=== PATIENT | female | born 1995 | race Caucasian/White ===

== ENCOUNTER 2018-12-01 02:04 | Inpatient (IN) | payer OTHER ==
[~2018-12-01] VITALS: Ht 149.9 cm; Wt 56.3 kg
[2018-12-01] VITALS (19 sets, daily range): BP systolic 95–180; BP diastolic 52–146; PULSE 97–109; RESP 11–19; Ht 149.9 cm; Wt 56.3 kg
[~2018-12-01 02:04] MED LIST: FER325 PO; INSU100I12 SQ; INSU100I33 SC; INSU200I SQ; MAGN400T27 PO; METO10TA92 PO; POTA8TAB2 PO
[2018-12-01] MEDS ORDERED: NS + KCL 40 MEQ 1,000 ML IV SCH (02:13)
[2018-12-01] MEDS ORDERED: D10/0.45% NACL + KCL 40 MEQ 1,000 ML IV SCH (02:13)
[2018-12-01] MEDS ORDERED: DEXTROSE 10%/0.45% NACL 1,000 ML IV SCH (02:13)
[2018-12-01] MEDS ORDERED: SOD CHLORIDE 0.9% 1,000 ML IV SCH ×2 (02:13→05:54)
[2018-12-01] MEDS ORDERED: D10/0.45% NACL + KCL 30 MEQ 1,000 ML IV SCH (02:13)
[2018-12-01] MEDS ORDERED: LACTATED RINGER'S 650 ML IV ONE (02:30)
[2018-12-01] MEDS ORDERED: INSULIN REGULAR, HUMAN 100 UNIT in SOD CHLORIDE 0.9% 100 ML IV SCH ×2 (02:30)
[2018-12-01] MEDS ORDERED: DEXTROSE 50% 50 ML SYRINGE IV PRN ×2 (02:30)
--- NOTE | 2018-12-01 05:14 | ERD ---
ER Documentation Chief Complaint Chief Complaint [id number],high accucheck result,hx IDDM,ALOC HPI This is a 23-year-old insulin-dependent diabetic who is totally noncompliant with her insulin is here for decreased mental status and presumed DKA. The patient was at [facility] last Saturday due to high blood sugar and she was given IV fluids and insulin and she was there for 1 day then went home. The boyfriend states the patient's been having nausea vomiting all week and has not been taking her insulin. He said that he came home from work last night and she was very difficult to arouse. The boyfriend says the patient's been mostly vomiting off and on all week, little intake orally, but no drug use and no trauma. He is generally a very poor historian. EMS was called and blood sugar reading was high. Had a difficult time getting an IV so they put in a left IO in her leg ROS All systems reviewed and are negative except as per history of present illness. Allergies Allergies: Coded Allergies: No Known Allergy (Unverified , 12/01/18) PMhx/Soc History of Surgery: No Anesthesia Reaction: No Hx Neurological Disorder: No Hx Respiratory Disorders: No Hx Cardiac Disorders: No Hx Psychiatric Problems: No Hx Miscellaneous Medical Probl: No Smoking Status: Unknown if ever smoked FmHx Family History: No coronary disease Physical Exam Vitals Vital Signs Date Temp Pulse Resp B/P (MAP) Pulse Ox O2 O2 Flow FiO2 Time Delivery Rate 12/01/18 88 16 96/67 (77) 99 Room Air 05:26 12/01/18 96.7 91 18 82/44 (57) 100 Nasal 03:14 Cannula 12/01/18 100 3.0 03:04 12/01/18 96.7 97 30 118/93 98 High Flow 02:25 (101) 12/01/18 96.7 99 23 118/93 98 02:14 (101) Physical Exam Const: Well-developed, well-nourished Head: Atraumatic, normocephalic Eyes: Normal Conjunctiva, PERRLA, EOMI, normal sclera, no nystagmus ENT: Normal External Ears, Nose and Mouth, dry mucus membranes. Neck: Full range of motion. No meningismus, no lymphadenopathy. Resp: Clear to auscultation bilaterally, no wheezing, rhonchi, rales Cardio: Tachycardia, no murmurs, S1 S2 present] Abd: Soft, non tender x 4, non distended. Normal bowel sounds, no guarding or rebound, no pulsitile abdominal masses or bruits Skin: No petechiae or rashes, no ecchymosis , no maculopapular rash Back: No midline or flank tenderness Ext: No cyanosis, or edema, gross FROM x 4, normal inspection, neurovascularly intact x 4 Neur: Patient is groggy but will respond to pain, limited exam Psych: Cannot assess Result Diagram: 12/01/18 0217 12/01/18 0450 Results 24 hrs Laboratory Tests Test 12/01/18 02:08 12/01/18 02:17 12/01/18 02:30 12/01/18 02:53 Bedside Glucose > 595 mg/dL White Blood 11.4 10^3/ul Count Red Blood Count 4.74 10^6/ul Hemoglobin 13.3 g/dl Hematocrit 46.1 % Mean Corpuscular 97.3 fl Volume Mean Corpuscular 28.1 pg Hemoglobin Mean Corpuscular 28.9 g/dl Hemoglobin Claudia nt Red Cell 16.4 % Distribution Width Platelet Count 211 10^3/UL Mean Platelet 13.8 fl Volume Immature 2.200 % Granulocytes % Neutrophils % 80.4 % Lymphocytes % 13.8 % Monocytes % 3.2 % Eosinophils % 0.0 % Basophils % 0.4 % Nucleated Red 0.3 /100WBC Blood Cells % Immature 0.250 10^3/ul Granulocytes # Neutrophils # 9.2 10^3/ul Lymphocytes # 1.6 10^3/ul Monocytes # 0.4 10^3/ul Eosinophils # 0.0 10^3/ul Basophils # 0.1 10^3/ul Nucleated Red 0.0 10^3/ul Blood Cells # Hemoglobin A1c > 14.0 % Serum HCG, NEGATIVE Qualitative Blood Gas Blood arterial Specimen Source Arterial Blood 12/01/2018 2:25:1 Date Drawn 4 AM Arterial Blood 7.140 pH (Temp corrected) Arterial Blood 18.5 mmhg pCO2 (Temp correct) Arterial Blood 629.4 mmHG pO2 (Temp corrected) Arterial Blood 6.2 mmol/L HCO3 Arterial Blood -20.8 mmol/L Base Excess Arterial Blood 99.5 mmHG Oxygen Saturatio n Miguel Test N/A Arterial Blood LB Gas Puncture Site Arterial 0.3 % Blood Carboxyhem oglobin Arterial Blood 0.5 % Methemoglobin Blood Gas A-a O2 65.1 mmHg Differential Oxyhemoglobin 98.7 % Percent Blood Gas 37.0 C Temperature Blood Gas MASK - NRB Modality FiO2 100.0 % Blood Gas A LILLIE LUCIO Critical Value Read Back Blood Gas UP Notified Whom Blood Gas 12/01/2018 2:36:4 Notified Time 2 AM POC Beta HCG, NEGATIVE Qualitative Test 12/01/18 03:10 12/01/18 03:13 12/01/18 04:13 12/01/18 04:33 Urine Color YELLOW Urine Clarity CLEAR Urine pH 5.0 Urine Specific 1.021 [place] Urine Ketones 1+ mg/dL Urine Nitrite NEGATIVE mg/dL Urine Bilirubin NEGATIVE mg/dL Urine NEGATIVE mg/dL Urobilinogen Urine Leukocyte NEGATIVE Lorraine/ul Esterase Urine 1 /HPF Microscopic RBC Urine 1 /HPF Microscopic WBC Urine Hemoglobin NEGATIVE mg/dL Urine Glucose 3+ mg/dL Urine Total 1+ mg/dl Protein Bedside Glucose > 595 mg/dL > 595 mg/dL Blood Gas Blood venous Specimen Source Arterial Blood 12/01/2018 4:47:3 Date Drawn 9 AM Arterial Blood VENOUS LINE Gas Puncture Site Miguel Test N/A Venous Blood pH 7.086 Venous Blood 22.2 mmHG pCO2 (Temp Corrected) Venous Blood pO2 65.4 mmHG (Temp Corrected) Venous Blood 6.5 mmol/L HCO3 Venous Blood 87.4 mmHG Oxygen Saturation Venous Blood -21.7 mmol/L Base Excess Venous Blood 12.0 g/dl Total Hemoglobin Venous Blood 86.6 % Oxyhemoglobin Venous Blood 0.6 % Methemoglobin Carboxyhemoglobi 0.3 % n Blood Gas 37.0 C Temperature Blood Gas NASAL CANNULA Modality FiO2 30.0 % Blood Gas STANTON GUPTA Critical Value Read Back Blood Gas LW Notified Whom Blood Gas 12/01/2018 4:58:2 Notified Time 9 AM Test 12/01/18 04:50 Sodium Level 152 mmol/L Potassium Level Pending Chloride Level 118 mmol/L Carbon Dioxide 6 mmol/L Level Anion Gap 28 Blood Urea 161 mg/dl Nitrogen Creatinine 5.22 mg/dl Est Glomerular 10 mL/min Filtrat Rate mL/min Glucose Level 1052 mg/dl Calcium Level 7.7 mg/dl Phosphorus Level 9.9 mg/dl Magnesium Level 3.7 mg/dl Salicylates < 1.0 mg/dl Level Acetaminophen < 10.0 ug/ml Level Ethyl Alcohol Pending Level Current Medications Medications Dose Sig/Jennifer Start Time Status Last (Trade) Ordered Route PRN Stop Time Admin Dose Reason Admin Potassium 1,000 ml @ Q0M IV 12/01/18 Chloride/Sodi 0 mls/hr 02:13 um Chloride Potassium 1,000 ml @ Q0M IV 12/01/18 Chloride/Dext 0 mls/hr 02:13 hilario/ Sod Cl Potassium 1,000 ml @ Q0M IV 12/01/18 Chloride/Sodi 0 mls/hr 02:13 um Chloride Potassium 1,000 ml @ Q0M IV 12/01/18 Chloride/Dext 0 mls/hr 02:13 hilario/ Sod Cl Sodium 1,000 ml @ Q0M IV 12/01/18 12/01/18 Chloride 0 mls/hr 02:13 02:29 1,000 ml @ Q0M IV 12/01/18 Dextrose/Sodi 0 mls/hr 02:13 um Chloride Insulin 101 ml @ ER DKA 12/01/18 12/01/18 Human 6.57 mls/hr PROTOCOL IV 02:30 03:27 Regular 100 unit/ Sodium Chloride Lactated 650 ml @ ONCE ONCE 12/01/18 DC 12/01/18 Ringer's 650 mls/hr IV 02:30 12/01/18 02:29 03:29 HYPOGLYCEM 12/01/18 Miscellaneous HYPOGLYCEMIA PROTOCOL PRN 02:30 TREATMENT XX Information .HYPOGLYCEMIA (* PROTOCOL Miscellaneous Pharmacy Order) Dextrose 50 ml Q15M PRN 12/01/18 (D50w IV 02:30 Syringe) .DECREASED GLUCOSE Dextrose 25 ml Q15M PRN 12/01/18 (D50w IV 02:30 Syringe) .DECREASED GLUCOSE Sodium 50 ml ONCE ONCE 12/01/18 DC Bicarbonate IV 05:30 12/01/18 (Na Bicarb 05:31 8.4% Syg) Sodium 50 ml ONCE ONCE 12/01/18 DC Bicarbonate IV 05:30 12/01/18 (Na Bicarb 05:31 8.4% Syg) Procedures/[place] [id number] Radiology Main Line: [phone] DIAGNOSTIC IMAGING REPORT Patient: AKUA CHOUDHARY : 1995 Age: 23 Sex: F MR #: [id number] DOS: 12/01/18 0216 Ordering MD: ROCKY MOREIRA DO Location: E/R Room/Bed: PROCEDURE: Single view chest. CLINICAL INDICATION: Chest pain TECHNIQUE: Single view of the chest was obtained COMPARISON: None FINDINGS: Lung volumes are diminished. There is no airspace consolidation or focal infiltrate. No pleural effusion or pneumothorax. Cardiac silhouette and mediastinal contours are unremarkable. Pulmonary vasculature appears normal. Regional bones are grossly unremarkable. IMPRESSION: Mildly diminished lung volumes, otherwise no acute findings. RPTAT: [facility] Physician Sebastian Date Time Electronically viewed and signed by Physician Sebastian on 12/01/2018 03:05 xB/ CC: ROCKY MOREIRA DO [id number] There is a major delay in getting the BMP done. The BMP was ordered is in lab so they never got it did not order it again, and still delayed. Just got resulted at approximately 5:45 AM. Patient is acidotic with a CO2 of 6 with an anion gap and a blood sugar of over thousand. She was already being treated with the DKA protocol on arrival. We will still get a CT head for completeness. The patient is clinically improv ed and is more arousable. She is complaining of pain where her IO was in her left tibia We will admit to the ICU with Dr. Ny The patient's pH on ABG was 7.1, second 1 on a VBG was 7.08, will give 2 A of bicarb IV. Critical Care Time: 45 minutes Treatments/Evaluations: Close monitoring and treatment of unstable vital signs, cardiorespiratory, and neurologic status, while maintaining tight balance of fluid, respiratory, and cardiac interventions. This time includes discussing the case with the patient and the patient's family. This time does not include all procedures stated elsewhere in this record. This time also includes reviewing old records, labs and radiological studies. This time includes examining and re- examining the patient. Additionally, this time also includes arranging care with admitting and consulting physicians. Departure Diagnosis: Primary Impression: DKA (diabetic ketoacidoses) Diabetes mellitus type: type 1 Diabetes mellitus complication detail: without coma Qualified Codes: E10.10 - Type 1 diabetes mellitus with ketoacidosis without coma Condition: Serious ROCKY MOREIRA DO Dec 01, 2018 05:14
[2018-12-01] MEDS ORDERED: NA BICARBONATE 8.4% 50 ML SYG IV ONE ×2 (05:30)
[2018-12-01] MEDS ORDERED: ACETAMINOPHEN 325 MG TAB PO PRN ×2 (06:00→08:00)
[2018-12-01] MEDS ORDERED: ONDANSETRON 4 MG INJ IV PRN (06:00)
[2018-12-01] MEDS: NS + KCL 30 MEQ 1,000 ML IV SCH ×3 (07:23→11:58)
[2018-12-01] MEDS ORDERED: HYDROmorphONE 0.5 MG/0.5 ML SYG IV PRN (08:00)
--- NOTE | 2018-12-01 13:51 | HP ---
DATE OF ADMISSION: 12/01/2018 REASON FOR VISIT: High blood sugars. HISTORY OF PRESENT ILLNESS: This 23-year-old female with type 1 diabetes mellitus and a his tory of noncompliance with insulin therapy was brought in by paramedics for altered mental status. T he patient was found to be in recurrent diabetic ketoacidosis. She was hospitalized at [facility] about 6 days prior to admission and discharged 24 hours later. According to her boyfriend, th e patient has been having nausea and vomiting throughout the week and refused to take her insulin. I nitial evaluation revealed white blood cell count of 11.4, hemoglobin of 13.3 and platelet count of 4 11,000. Sodium was elevated at 161, potassium 5.1, chloride 132, bicarbonate 14, anion gap elevated at 15 and serum glucose of 638. Phosphorus was elevated at 5.1, magnesium was 2.5. PAST MEDICAL HISTORY: 1. Type 1 diabetes mellitus. 2. History of recent DKA, requiring hospitalization less than one week prior to admission. SOCIAL HISTORY: The patient lives with her boyfriend. Apparently, there is no history of tobacco or alcohol use. PHYSICAL EXAMINATION: GENERAL: Well-developed, well-nourished young female who is quite lethargic and poorly responsive. VITAL SIGNS: Blood pressure 103/53, pulse 107, respiratory rate 16, temperature 95.9. HEENT: Extraocular muscles intact. Pupils are equal and reactive to light bilaterally. Sclerae are anicteric. Oropharynx is clear and moist. NECK: Supple, no JVD, no carotid bruits. LUNGS: Clear to auscultation bilaterally. CARDIAC: Tachycardia, no murmurs or gallops. ABDOMEN: Soft, nontender, nondistended, normoactive bowel sounds. EXTREMITIES: No clubbing, cyanosis, or edema. ASSESSMENT: 1. A 23-year-old female with recurrent diabetes ketoacidosis. 2. Noncompliance with insulin therapy. 3. Hypernatremia. 4. Acute on chronic kidney disease. PLAN: 1. Admit to ICU. Continue insulin drip. Continue IV fluid hydration. 2. Monitor renal function, blood sugars and CBC. 3. family living educator consultation. Dictated By: KATHRINE DWYER/NEIDA Conf#: [id number] DID#: [id number] CC: ORI GONSALVES MD;*[facility]*
[2018-12-01] MEDS ORDERED: GLUCOSE GEL 15 GRAM TUBE PO PRN ×2 (16:00)
[2018-12-01] MEDS ORDERED: POTASSIUM CHLORIDE 30 MEQ in SOD CHLORIDE 0.45% 1,000 ML IV SCH (16:00)
[2018-12-01] MEDS ORDERED: INSULIN GLARGINE [LANTus] (100 UNITS/ML) SYG SC ONE (16:00)
[2018-12-01] MEDS: INSULIN ASPART [NOVOLOG] 3 ML PEN SC SCH ×2 (17:34→21:48)
[2018-12-01] MEDS ORDERED: INSULIN ASPART [NOVOLOG] 3 ML PEN SC SCH (17:35)
[2018-12-02] VITALS (24 sets, daily range): BP systolic 103–135; BP diastolic 64–105; PULSE 85–110; RESP 11–25
[2018-12-02] MEDS: Insulin NOVOLOG SS MODERATE Algorithm(NPO/TPN/ENTERAL FEEDS) SC SCH ×2 (00:57→05:17)
[2018-12-02] MEDS ORDERED: INSULIN ASPART [NOVOLOG] 3 ML PEN SC SCH ×2 (01:35→06:00)
[2018-12-02] MEDS ORDERED: ACCU-CHEK XX SCH (02:00)
[2018-12-02] MEDS ORDERED: INSULIN GLARGINE [LANTus] (100 UNITS/ML) SYG SC SCH ×2 (08:00→09:00)
[2018-12-02] MEDS: DEXTROSE 5% 1,000 ML IV SCH ×3 (08:24→21:29)
[2018-12-02] MEDS: INSULIN ASPART [NOVOLOG] 3 ML PEN SC SCH ×4 (09:11→12:31)
[2018-12-02] MEDS: ERYTHROMYCIN BASE (DR) 250 MG CAP PO SCH ×4 (10:00→21:32)
--- NOTE | 2018-12-02 11:47 | PN ---
Date/Time of Note Date/Time of Note DATE: 12/02/18 TIME: 11:44 Subjective Patient is more than responsive. No complaint of abdominal pain, nausea, or vomiting. However she vomited earlier when trying to eat Objective Vitals Vital Signs Date Temp Pulse Resp B/P (MAP) Pulse Ox O2 O2 Flow FiO2 Time Delivery Rate 12/02/18 102 20 115/69 100 Room Air 10:00 (84) 12/02/18 97.8 08:00 12/01/18 3.0 03:04 Intake and Output 12/01/18 12/01/18 12/02/18 1515:00 23:00 07:00 IntakeIntake Total 4394.70 ml 1579.80 ml 0 ml OutputOutput Total 2620 ml 420 ml 520 ml BalanceBalance 1774.70 ml 1159.80 ml -520 ml Clear to auscultation bilaterally Regular rate and rhythm Soft nontender nondistended normoactive bowel sounds No edema Nonfocal Results Result Diagram: 12/02/18 0433 12/02/18 0433 Medications Medications Current Medications Acetaminophen (Tylenol Tab) 650 mg Q4H PRN PO pain/feer; Start 12/01/18 at 08:00 Ondansetron HCl (Zofran Inj) 4 mg Q4H PRN IV nausea; Start 12/01/18 at 08:00 Hydromorphone HCl (Dilaudid) 0.5 mg Q2H PRN IV pain; Start 12/01/18 at 08:00 Miscellaneous Information 1 ea NOTE XX ; Start 12/01/18 at 16:00 Glucose (Glutose) 15 gm Q15M PRN PO DECREASED GLUCOSE; Start 12/01/18 at 16:00 Glucose (Glutose) 22.5 gm Q15M PRN PO DECREASED GLUCOSE; Start 12/01/18 at 16:00 Insulin Aspart (Novolog Insulin Pen) 8 unit Q8H SC Last administered on 12/02/18at 09:11; Admin Dose 8 UNIT; Start 12/02/18 at 09:00 Insulin Glargine (Lantus) 35 units DAILY@0800 SC Last administered on 12/02/18at 09:11; Admin Dose 35 UNITS; Start 12/02/18 at 09:00 Dextrose 1,000 ml @ 150 mls/hr Q6H40M IV Last administered on 12/02/18at 08:24; Admin Dose 100 MLS/HR; Start 12/02/18 at 08:30 Insulin Aspart (Novolog Insulin Pen) NOVOLOG *MODERATE* ALGORITHM Q4 SC Last administered on 12/02/18at 09:11; Admin Dose 8 UNIT; Start 12/02/18 at 09:00 Erythromycin (Erythromycin) 250 mg Q8 PO ; Start 12/02/18 at 10:00 VTE Prophylaxis Risk score (from Ns)>0 risk: 2 SCD applied (from Ns): Yes Lines/Catheters IV Catheter Type: Saline Lock Garcia in Place: No Assessment/Plan Assessment/Plan 23-year-old female with recurrent DKA, resolved Severe dehydration Acute kidney injury, improving Hypernatremia Nausea and vomiting most likely due to gastroparesis Noncompliance with insulin therapy Thrombocytopenia Increase Lantus insulin to 35 units daily Continue NovoLog insulin 8 units 3 times daily Start erythromycin 250 mg p.o. 3 times daily Full liquid diet Case was discussed in length with the nurse and natural resources extension educator Consider resuming insulin drip if blood sugar does not improve. Otherwise transfer to telemetry KATHRINE RAGLAND MD Dec 02, 2018 11:47
[2018-12-02] MEDS: ONDANSETRON 4 MG INJ IV PRN (12:50)
[2018-12-02] MEDS ORDERED: DEXTROSE 50% 50 ML SYRINGE IV PRN ×2 (13:00)
[2018-12-02] MEDS: ACCU-CHEK XX SCH ×11 (13:16→23:27)
[2018-12-02] MEDS: INSULIN HUMAN REGULAR 100 UNIT in SOD CHLORIDE 0.9% 99 ML IV SCH (15:00)
[2018-12-02] MEDS: METOCLOPRAMIDE 10 MG INJ IV SCH (18:08)
[2018-12-03] VITALS (24 sets, daily range): BP systolic 109–143; BP diastolic 72–102; PULSE 93–111; RESP 15–26
[2018-12-03] MEDS: METOCLOPRAMIDE 10 MG INJ IV SCH ×5 (00:37→23:36)
[2018-12-03] MEDS: ACCU-CHEK XX SCH ×15 (00:41→14:29)
[2018-12-03] MEDS: DEXTROSE 5% 1,000 ML IV SCH ×3 (03:56→18:31)
[2018-12-03] MEDS: INSULIN HUMAN REGULAR 100 UNIT in SOD CHLORIDE 0.9% 99 ML IV SCH (04:00)
[2018-12-03] MEDS: ERYTHROMYCIN BASE (DR) 250 MG CAP PO SCH ×3 (05:01→21:26)
--- NOTE | 2018-12-03 10:54 | PN ---
Date/Time of Note Date/Time of Note DATE: 12/03/18 TIME: 10:52 Subjective Feels much better. No abdominal pain, nausea, vomiting. Tolerating oral intake Objective Vitals Vital Signs Date Temp Pulse Resp B/P (MAP) Pulse Ox O2 O2 Flow FiO2 Time Delivery Rate 12/03/18 98.3 94 15 129/93 100 Room Air 08:00 (105) 12/01/18 3.0 03:04 Intake and Output 12/02/18 12/02/18 12/03/18 1515:00 23:00 07:00 IntakeIntake Total 960 ml 1241 ml 1377.5 ml OutputOutput Total 755 ml 605 ml 510 ml BalanceBalance 205 ml 636 ml 867.5 ml Clear to auscultation bilaterally Regular rate and rhythm Soft nontender nondistended normoactive bowel sounds No edema Nonfocal Results Result Diagram: 12/03/18 0426 12/03/18 0426 Medications Medications Current Medications Acetaminophen (Tylenol Tab) 650 mg Q4H PRN PO pain/feer; Start 12/01/18 at 08:00 Ondansetron HCl (Zofran Inj) 4 mg Q4H PRN IV nausea Last administered on 12/02/18at 12:50; Admin Dose 4 MG; Start 12/01/18 at 08:00 Hydromorphone HCl (Dilaudid) 0.5 mg Q2H PRN IV pain; Start 12/01/18 at 08:00 Miscellaneous Information 1 ea NOTE XX ; Start 12/01/18 at 16:00 Glucose (Glutose) 15 gm Q15M PRN PO DECREASED GLUCOSE; Start 12/01/18 at 16:00 Glucose (Glutose) 22.5 gm Q15M PRN PO DECREASED GLUCOSE; Start 12/01/18 at 16:00 Dextrose 1,000 ml @ 150 mls/hr Q6H40M IV Last administered on 12/03/18at 03:56; Admin Dose 150 MLS/HR; Start 12/02/18 at 08:30 Erythromycin (Erythromycin) 250 mg Q8 PO Last administered on 12/03/18at 05:01; Admin Dose 250 MG; Start 12/02/18 at 10:00 Metoclopramide HCl (Reglan) 10 mg Q6 IV Last administered on 12/03/18at 05:01; Admin Dose 10 MG; Start 12/02/18 at 18:00 Diagnostic Test (Pha) (Accu-Chek) 1 ea Q1H XX Last administered on 12/03/18at 09:29; Admin Dose 1 EA; Start 12/02/18 at 13:00 Miscellaneous Information (* Miscellaneous Pharmacy Order) Treatment of Hypoglycemia: 1.BG 51... Per protocol XX ; Start 12/02/18 at 13:00 Dextrose (D50w Syringe) 25 ml Q15M PRN IV .DECREASED GLUCOSE; Start 12/02/18 at 13:00 Dextrose (D50w Syringe) 50 ml Q15M PRN IV .DECREASED GLUCOSE; Start 12/02/18 at 13:00 Insulin Glargine (Lantus) 36 units DAILY@0800 SC ; Start 12/04/18 at 10:30 Insulin Aspart (Novolog Insulin Pen) 8 unit AC MEALS SC ; Start 12/03/18 at 11:00 Insulin Aspart (Novolog Insulin Pen) NOVOLOG *MODERATE* ALGORITHM WITH MEALS BEDTIME SC ; Start 12/03/18 at 11:30 VTE Prophylaxis Risk score (from Nsg)>0 risk: 2 SCD applied (from Nsg): Yes Lines/Catheters IV Catheter Type: Saline Lock Garcia in Place: No Assessment/Plan Assessment/Plan 23-year-old female with recurrent DKA, resolved Noncompliance with insulin therapy Diabetic gastroparesis Severe dehydration Acute kidney injury, improving Thrombocytopenia Discontinue insulin drip Resume Lantus and lispro insulin Transfer to [facility] Physical therapy multimedia services coordinator follow-up Discharge planning KATHRINE RAGLAND MD Dec 03, 2018 10:54
[2018-12-03] MEDS: INSULIN ASPART [NOVOLOG] 3 ML PEN SC SCH ×5 (11:00→21:00)
[2018-12-03] MEDS: ONDANSETRON 4 MG INJ IV PRN ×2 (11:21→18:31)
[2018-12-03] MEDS ORDERED: INSULIN GLARGINE [LANTus] (100 UNITS/ML) SYG SC ONE (12:00)
[2018-12-04] VITALS (9 sets, daily range): BP systolic 110–133; BP diastolic 75–99; PULSE 102–114; RESP 14–23
[2018-12-04] MEDS: DEXTROSE 5% 1,000 ML IV SCH ×4 (01:18→14:09)
[2018-12-04] MEDS: METOCLOPRAMIDE 10 MG INJ IV SCH ×2 (04:59→12:41)
[2018-12-04] MEDS: ERYTHROMYCIN BASE (DR) 250 MG CAP PO SCH ×2 (04:59→14:00)
[2018-12-04] MEDS ORDERED: INSULIN GLARGINE [LANTus] (100 UNITS/ML) SYG SC SCH (08:00)
[2018-12-04] MEDS: INSULIN ASPART [NOVOLOG] 3 ML PEN SC SCH ×4 (09:25→12:41)
--- NOTE | 2018-12-04 09:57 | PDOCDIS ---
Discharge Instructions CONDITION [id number] Patient Condition: [id number] Good HOME CARE INSTRUCTIONS: [id number] Special Diet: Vquki1k diabetic ACTIVITY: [id number] Activity Restrictions: [id number] No Restrictions FOLLOW UP/APPOINTMENTS Follow-up Plan pcp 1 week Endocrinology 1 week KATHRINE RAGLAND MD Dec 04, 2018 09:57
--- NOTE | 2018-12-04 19:54 | DS ---
DATE OF ADMISSION: 12/01/2018 DATE OF DISCHARGE: 12/04/2018 DISCHARGE DIAGNOSES: 1. A 23-year-old female with recurrent diabetic ketoacidosis, resolved. 2. Nausea and vomiting, most likely due to gastroparesis. 3. Severe dehydration, resolved. 4. Acute kidney injury, improved. 5. Thrombocytopenia. 6. Noncompliance with insulin therapy. HOSPITAL COURSE: A 23-year-old female with type 1 diabetes mellitus, presented to emergency room wit h altered mental status. The patient had just been discharged from [facility] following tarik betic ketoacidosis. Initial evaluation revealed recurrent diabetic ketoacidosis. Blood sugar was as high as 1052 with bi carbonate of 6. BUN and creatinine were 161 and 5.22. The patient received aggressive IV fluid hydr ation. She remained in the ICU for several days on insulin drip. DKA resolved. Acute kidney injury also improved. Her nausea and vomiting were attributed mainly to DKA, but there was some evidence o f gastroparesis. The patient was started on Reglan. I had a long conversation with the patient and her boyfriend regarding compliance with diabetic diet and insulin therapy. The patient is in a stable condition for discharge. She will follow up with [facility] and endocrinology as outpatient. DISCHARGE MEDICATIONS: 1. Basaglar insulin 35 units subcutaneously daily. 2. Lispro insulin 9 units subcutaneously before each meal. 3. Reglan 10 mg before each meal as needed. Dictated By: KATHRINE DWYER/NTS Conf#: [id number] DID#: [id number] CC: ORI GONSALVES MD;*[facility]*
== END 2018-12-04 15:15 | disposition home or self-care (01) | DRG 638 ==
LOC: E/R 02:04 → ICU 05:55 → 2NE 12-04 05:40
PROVIDERS: ADMIT Legal Medicine; ATTEND Legal Medicine
PROC: 4A133R1 Monitoring of Arterial Saturation, Peripheral, Percutaneous Approach (ICD-10-PCS; principal; 2018-12-01)
DX: E10.10 Type 1 diabetes mellitus with ketoacidosis without coma (principal); E87.0 Hyperosmolality and hypernatremia; N17.9 Acute kidney failure, unspecified; E86.0 Dehydration; E10.43 Type 1 diabetes mellitus with diabetic autonomic (poly)neuropathy; K31.84 Gastroparesis; D69.6 Thrombocytopenia, unspecified; E10.22 Type 1 diabetes mellitus with diabetic chronic kidney disease; N18.9 Chronic kidney disease, unspecified; Z79.4 Long term (current) use of insulin; Z91.14 Patient's other noncompliance with medication regimen
CPT/HCPCS: 36415; 36600; 70450; 71045; 80048; 80307; 81001; 81025; 82010; 82803; 82962; 83036; 83735; 84100; 84295; 84703; 85025; 86703; 86803; 87081; 87340; 93005; 96361; 96374; 97116; 97163; 97530; J1815; J2405; J2765; J3480; J7030; J7070; J7120

== ENCOUNTER 2018-12-07 16:41 | Observation (INO) | payer OTHER ==
[~2018-12-07] VITALS: Ht 149.9 cm; Wt 55.0 kg
[2018-12-07] MEDS ORDERED: ONDANSETRON INJ 8 MG in DEXTROSE 5% 50 ML IV STA (16:53)
[2018-12-07] MEDS ORDERED: FAMOTIDINE 20 MG INJ IV STA (16:53)
[2018-12-07] MEDS ORDERED: SOD CHLORIDE 0.9% 1,000 ML IV STA (16:53)
[2018-12-07] MEDS ORDERED: DEXTROSE 50% 50 ML SYRINGE IV STA (16:53)
[2018-12-07] MEDS ORDERED: ONDANSETRON 4 MG INJ ONE (17:04)
[2018-12-07] MEDS ORDERED: ONDANSETRON 4 MG INJ IV STA (17:06)
--- NOTE | 2018-12-07 17:24 | ERD ---
ER Documentation Chief Complaint Chief Complaint PT BIB family for being altered, possible hypoglycemic episode HPI This is a 24-year-old female with a history of type 1 diabetes mellitus that presented to the emergency department with changes in her mental status. Her [id number] indicated that this morning the patient awoke and had taken her insulin as instructed. Afterwards she ate breakfast. She was then complaining of nausea and had 3 episodes of nonbloody nonbilious emesis. The patient appeared to be confused lightheaded and became diaphoretic. Her wtluwk-ew-ail immediately drove her to the hospital for further evaluation. She stated that the patient began to slur her words. She appeared very drowsy. She denies any illicit drug use. Her tytpah-ek-rrn stated there was no blunt or penetrating head chest or abdominal trauma. She has not complained of any polyuria polydipsia. The patient had been admitted to the hospital and subsequently discharged 2 days prior to arrival. At that time she was in diabetic ketoacidosis with a BUN of 161 and a creatinine of 5.22 upon her admission at the time of discharge her BUN had improved to 73 and creatinine was 1.84. She denies any abdominal pain. ROS All systems reviewed and are negative except as per history of present illness. Medications Home Meds Reported Medications Insulin Lispro (Humalog Kwikpen) 200 Unit/1 Ml Insuln.pen, 20 UNIT SQ AC A, EA ADMELOG 12/07/18 Insulin Glargine,Hum.rec.anlog (Basaglar Kwikpen U-100) 100 Unit/1 Ml Insuln.pen, 30 UNIT SC QHS, EA 12/07/18 Discontinued Scripts Metoclopramide* (Reglan*) 10 Mg Tablet, 10 MG PO AC MEALS AND BEDTIME for nausea for 30 Days, TAB Prov:KATHRINE RAGLAND MD 12/04/18 Insulin Lispro (Humalog Kwikpen U-100) 100 Unit/1 Ml Insuln.pen, 9 UNIT SQ AC A for 30 Days, EA 3 Refills Prov:KATHRINE RAGLAND MD 12/04/18 Insulin Glargine,Hum.rec.anlog (Basaglar Kwikpen U-100) 100 Unit/1 Ml Insuln.pen, 35 UNIT SC DAILY for 30 Days, EA 3 Refills Prov:KATHRINE RAGLAND MD 12/04/18 Allergies Allergies: Coded Allergies: No Known Allergy (Unverified , 12/07/18) PMhx/Soc History of Surgery: No Anesthesia Reaction: No Hx Neurological Disorder: No Hx Respiratory Disorders: No Hx Cardiac Disorders: No Hx Psychiatric Problems: Yes (anxiety) Hx Miscellaneous Medical Probl: Yes (See note) Hx Alcohol Use: Yes (social) Hx Substance Use: No Hx Tobacco Use: No Physical Exam Vitals Vital Signs Date Temp Pulse Resp B/P (MAP) Pulse Ox O2 O2 Flow FiO2 Time Delivery Rate 12/07/18 97 16 121/85 98 Room Air 21:15 (97) 12/07/18 97.9 96 18 97/64 (75) 100 16:58 Physical Exam Constitutional:Well-developed. Well-nourished. HEENT:Normocephalic. Atraumatic.Pupils were 3 mm equal round reactive to light. Very dry mucous membranes.No tonsillar exudates. Neck: No nuchal rigidity. No lymphadenopathy. No posterior cervical spine tenderness or step-offs. Respiratory: Not using accessory muscles of respiration.Lungs were clear to auscultation bilaterally. No rhonchi. No rales. No wheezing. Cardiovascular: Regular rate regular rhythm.No murmurs. No rubs were appreciated.S1, S2 normal. Distal pulses are palpable 2+ bilaterally. GI: Abdomen was soft. Nontender. Non Distended. No pulsatile abdominal masses or bruits. No rebound. No guarding. Bowel sounds were present and normal. Muscle skeletal: Full range of motion of both the upper and lower extremities bilaterally.Normal muscle tone.No assymetrical calf tenderness or swelling. Skin: No petechia, no purpura. No lesions on the palms or the soles of the feet. No maculopapular rash. NEURO: Patient was lethargic and responsive to sternal rub. Patient withdrew to pain. Speech was slurred. Result Diagram: 12/07/18 1647 12/07/18 1647 Results 24 hrs Laboratory Tests Test 12/07/18 16:47 12/07/18 17:01 12/07/18 18:07 12/07/18 19:22 White Blood Count 14.3 10^3/ul Red Blood Count 3.93 10^6/ul Hemoglobin 10.9 g/dl Hematocrit 34.5 % Mean Corpuscular 87.8 fl Volume Mean Corpuscular 27.7 pg Hemoglobin Mean Corpuscular 31.6 g/dl Hemoglobin Concent Red Cell 13.4 % Distribution Width Platelet Count 241 10^3/UL Mean Platelet 12.0 fl Volume Immature 6.000 % Granulocytes % Neutrophils % % Segmented 55 % Neutrophils % (Manual) Band Neutrophils % 5 % (Manual) Lymphocytes % % Lymphocytes % 31 % (Manual) Reactive 1 % Lymphocytes % (Manual) Monocytes % % Monocytes % 5 % (Manual) Eosinophils % % Basophils % % Metamyelocytes % 1 % (manual) Myelocytes % 2 % (Manual) Nucleated Red Blood 0.0 /100WBC Cells % Immature 0.860 10^3/ul Granulocytes # Neutrophils # 10^3/ul Neutrophils # 8.0 10^3/ul (Manual) Band Neutrophils # 0.7 10^3/ul Lymphocytes 4.4 10^3/ul (Manual) Lymphocytes # 10^3/ul Reactive 0.1 10^3/ul Lymphocytes # Monocytes # 10^3/ul Monocytes # 0.7 10^3/ul (Manual) Eosinophils # 10^3/ul Basophils # 10^3/ul Metamyelocytes # 0.1 10^3/ul Myelocytes # 0.2 10^3/ul Nucleated Red Blood 10^3/ul Cells # Platelet Estimate NORMAL Giant Platelets 2 % Prothrombin Time 12.6 Sec Prothrombin Time 1.0 Ratio INR International 0.93 Normalized Ratio Activated 30.1 Sec Partial Thromboplas t Time Sodium Level 140 mmol/L Potassium Level 2.7 mmol/L Chloride Level 99 mmol/L Carbon Dioxide 37 mmol/L Level Anion Gap 4 Blood Urea Nitrogen 15 mg/dl Creatinine 0.80 mg/dl Est Glomerular > 60 mL/min Filtrat Rate mL/min Glucose Level 22 mg/dl Calcium Level 8.9 mg/dl Total Bilirubin 0.2 mg/dl Direct Bilirubin 0.00 mg/dl Indirect Bilirubin 0.2 mg/dl Aspartate Amino 56 IU/L Transf (AST/SGOT) Alanine 68 IU/L Aminotransferase (A LT/SGPT) Alkaline 127 IU/L Phosphatase Creatine Kinase 287 IU/L Creatine Kinase 0.3 Index Creatinine Kinase 0.96 ng/ml MB (Mass) Troponin I < 0.012 ng/ml Total Protein 6.7 g/dl Albumin 3.1 g/dl Globulin 3.60 g/dl Albumin/Globulin 0.86 Ratio Amylase Level 142 U/L Lipase 299 U/L Serum HCG, NEGATIVE Qualitative Bedside Glucose 176 mg/dL 127 mg/dL 132 mg/dL Current Medications Medications Dose Sig/Jennifer Start Time Status Last (Trade) Ordered Route PRN Stop Time Admin Dose Reason Admin Dextrose 50 ml ONCE STAT 12/07/18 DC 12/07/18 (D50w IV 16:53 16:45 Syringe) 12/07/18 16:56 Sodium 1,000 ml @ Q1H STAT 12/07/18 DC 12/07/18 Chloride 1,000 mls/hr IV 16:53 17:09 12/07/18 17:52 Ondansetron 54 ml @ ONCE STAT 12/07/18 Cancel HCl 8 200 mls/hr IV 16:53 mg/Dextrose 12/07/18 17:09 Famotidine 20 mg ONCE STAT 12/07/18 DC 12/07/18 (Pepcid Iv) IV 16:53 17:09 12/07/18 16:56 Ondansetron 4 mg STK-MED 12/07/18 DC HCl (Zofran ONCE .ROUTE 17:04 Inj) 12/07/18 17:05 Ondansetron 8 mg ONCE STAT 12/07/18 DC 12/07/18 HCl (Zofran IV 17:06 17:09 Inj) 12/07/18 17:07 Potassium 100 ml @ ONCE ONCE 12/07/18 DC 12/07/18 Chloride 50 mls/hr IVPB 18:30 19:05 12/07/18 20:29 Ondansetron 4 mg ER BRIDGE 12/07/18 HCl (Zofran PRN IV 21:30 Inj) NAUSEA/VOMITI 12/08/18 21:29 NG 650 mg ER BRIDGE 12/07/18 Acetaminophen PRN PO 21:30 (Tylenol .MILD PAIN 12/08/18 21:29 Tab) 1-3 OR TEMP Procedures/MDM The patient presented to the emergency department with an acute and persistent change in their mental status. The differential diagnosis is diverse however reversible causes such as hypoglycemia, opiate overdose, thiamine deficiency were immediately considered. The patient was placed on a monitor worker, continuous pulse oximetry and IV access was established. The patients airway was secure however hypoxic events such as anemia, shock, or severe pulmonary disease were all considered as etiologies in this patients presentation. Circulation assessed with good cap refill and did not require fluids or pressure support. Finger stick for rapid glucose determined to be low at 24. The patient was immediately given an amp of D50 and repeat blood glucose was 176. She was also given a liter bolus as she still signs of clinical dehydration with multiple episodes of nonbloody nonbilious emesis. The patient's potassium was low at 2.7. The patient was supplemented with IV potassium. 12 Lead EKG tracing ordered and reviewed by myself showed: Normal sinus rhythm of [] bpm and no arrhythmia. [place] interval normal. QRS duration normal. No ST segment elevation No ST segment depression. No changes consistent with acute ischemia. The patient had a chest radiograph reviewed by myself that showed no evidence of pneumonia. [facility]. The patient will be made for observation. She will be going to the telemetry service given that she is receiving IV potassium. Critical Care: Time: 35 minutes Treatments/Evaluations: Close monitoring and treatment of unstable vital signs, cardiorespiratory, and neurologic status, while maintaining tight balance of fluid, respiratory, and cardiac interventions. Time does not include performing any of the above billable procedures. Departure Diagnosis: Primary Impression: Hypoglycemia Additional Impression: Hypokalemia Condition: Serious HANDY JAIMES MD Dec 07, 2018 17:24
[2018-12-07] MEDS ORDERED: POTASSIUM CHLORIDE 100 ML IVPB ONE (18:30)
[2018-12-07] MEDS ORDERED: ACETAMINOPHEN 325 MG TAB PO PRN (21:30)
[2018-12-07] MEDS ORDERED: ONDANSETRON 4 MG INJ IV PRN (21:30)
[2018-12-07 23:15] VITALS: BP 119/65; PULSE 99; RESP 18
[2018-12-07 23:30] VITALS: Ht 149.9 cm; Wt 55.0 kg
[2018-12-07] MEDS ORDERED: GLUCOSE GEL 15 GRAM TUBE BUCCAL PRN (23:30)
[2018-12-07] MEDS ORDERED: GLUCAGON 1 MG INJ IM PRN (23:30)
[2018-12-07] MEDS ORDERED: GLUCOSE GEL 15 GRAM TUBE PO PRN ×2 (23:30)
[2018-12-07] MEDS ORDERED: DEXTROSE 50% 50 ML SYRINGE IV PRN ×2 (23:30)
[2018-12-08] MEDS: ERYTHROMYCIN BASE (DR) 250 MG CAP PO SCH ×4 (00:15→22:00)
[2018-12-08 02:30] VITALS: BP 103/59; PULSE 97
[2018-12-08 07:17] VITALS: BP 125/64; PULSE 102; RESP 17
[2018-12-08] MEDS: INSULIN ASPART [NOVOLOG] 3 ML PEN SC SCH ×4 (07:50→21:09)
[2018-12-08] MEDS: POTASSIUM CHLORIDE (SR) 20 MEQ TAB PO SCH ×3 (08:21→21:00)
[2018-12-08] MEDS: METOCLOPRAMIDE 10 MG TAB PO SCH ×3 (08:21→17:27)
[2018-12-08] MEDS: ONDANSETRON 4 MG INJ IV PRN (11:01)
[2018-12-08] MEDS ORDERED: POTASSIUM CHLORIDE (SR) 20 MEQ TAB PO STA (13:05)
[2018-12-08] MEDS: SOD CHLORIDE 0.9% 1,000 ML IV SCH (13:57)
[2018-12-08 14:21] VITALS: BP 115/71; PULSE 111; RESP 18
[2018-12-08] MEDS ORDERED: INSULIN GLARGINE [LANTus] (100 UNITS/ML) SYG SC SCH (20:00)
--- NOTE | 2018-12-08 20:04 | HP ---
Date/Time of Note Date/Time of Note DATE: 12/08/18 TIME: 19:37 Assessment/Plan VTE Prophylaxis Risk score (from Nsg)>0 risk: 0 SCD applied (from Nsg): No SCD contraindicated: low risk/ambulating Pharmacological prophylaxis: other Lines/Catheters IV Catheter Type (from Nrsg): Saline Lock Assessment/Plan Hospital Course 23 f with type 1 DM and frequent admissions to the hospitals in the area for DKA who presented with episode of LOC which happened shortly after her boyfriend administered 30 units of Humalog insulin . He states that the patient insisted that this is the right dose of insulin despite his resistance to administer. She is normally on 30 units of Lantus at bedtime and 4 units of Humalog insulin with meals . She was noted to be severely hypoglycemic in the ED . She denies suicidal thoughts . She has no answer for me when I asked why did you ask him to inject wrong dose of Humalog. ED work up was significant for leukocytosis which improved with IV hydration . Hypokalemia and anemia also noted . CBC differential was significant for elevated immature granulocytes , myelocytes , metamyelocytes and giant platelets . #AMS in the setting of hypoglycemia induced seizure , hypoglycemia improved , monitor sugars for the next 24 hours #Odd behavior and odd social dynamics leading to administration of wrong dose of insulin , SW, DM educator , psychiatry #Dehydration , NS 100 cc /h #Leukocytosis , no fever, no signs of infection , will check UA #DMI , Lantus 11 U HS , Mild Sliding scale , hypoglycemic protocol #DM gastroparesis, Reglan and Erythromycin #Hypokalemia, replace as needed # elevated immature granulocytes , myelocytes , metamyelocytes and giant platelets , hematology as outpatient #Anemia , mild , work up : Iron panel , b12 and Folate levels , LDH , reticulocyte count #PPX: SCD and Pepcid Result Diagram: 12/08/189 12/08/18428 Results 24hrs Laboratory Tests Test 12/08/18 02:43 12/08/18 04:29 12/08/18 08:08 12/08/18 12:10 Bedside Glucose 101 129 208 White Blood Count 11.3 #H Red Blood Count 3.80 L Hemoglobin 10.5 L Hematocrit 33.6 L Mean Corpuscular 88.4 Volume Mean Corpuscular 27.6 L Hemoglobin Mean Corpuscular 31.3 L Hemoglobin Concent Red Cell 13.5 Distribution Width Platelet Count 262 Mean Platelet Volume 11.4 H Immature 5.400 H Granulocytes % Neutrophils % Segmented 60 Neutrophils % (Manual) Band Neutrophils % 4 (Manual) Lymphocytes % Lymphocytes % 27 (Manual) Monocytes % Monocytes % (Manual) 6 Eosinophils % Basophils % Metamyelocytes % 1 H (manual) Myelocytes % 1 H (Manual) Promyelocytes % 1 H (Manual) Nucleated Red Blood 0.0 Cells % Immature 0.610 H Granulocytes # Neutrophils # Neutrophils # 6.8 (Manual) Band Neutrophils # 0.4 Lymphocytes (Manual) 3.0 H Lymphocytes # Monocytes # Monocytes # (Manual) 0.6 Eosinophils # Basophils # Metamyelocytes # 0.1 H Myelocytes # 0.1 H Promyelocytes # 0.1 H Nucleated Red Blood Cells # Platelet Estimate NORMAL Giant Platelets 2 H Sodium Level 140 Potassium Level 3.1 L Chloride Level 103 Carbon Dioxide Level 32 H Anion Gap 5 Blood Urea Nitrogen 11 Creatinine 0.88 Est Glomerular > 60 Filtrat Rate mL/min Glucose Level 107 # Calcium Level 8.6 Test 12/08/18 17:25 Bedside Glucose 230 H HPI/ROS Admit Date/Time Admit Date/Time Dec 07, 2018 at 21:23 Hx of Present Illness 23 f with type 1 DM and frequent admissions to the hospitals in the area for DKA who presented with episode of LOC which happened shortly after her boyfriend administered 30 units of Humalog insulin . He states that the patient insisted that this is the right dose of insulin despite his resistance to administer. She is normally on 30 units of Lantus at bedtime and 4 units of Humalog insulin with meals . She was noted to be severely hypoglycemic in the ED . She denies courtney icidal thoughts . She has no answer for me when I asked why did you ask him to inject wrong dose of Humalog. She just says that she wants to go home . She denies any focal weakness or numbness . Denies fever or chills, change in urination habits , cough , headache , neck pain, neck stiffness . ED work up was significant for leukocytosis which improved with IV hydration . Hypokalemia and anemia also noted . CBC differential was significant for elevated immature granulocytes , myelocytes , metamyelocytes and giant platelets . PMH/Family/Social Past Medical History Medications Current Medications Insulin Aspart (Novolog Insulin Pen) NOVOLOG *MODERATE* ALGORITHM WITH MEALS BEDTIME SC Last administered on 12/08/18 17:27; Admin Dose 6 UNIT; Start 12/08/18 at 07:50 Erythromycin (Erythromycin) 250 mg Q8 PO Last administered on 12/08/18 13:57; Admin Dose 250 MG; Start 12/07/18 at 23:30 Metoclopramide HCl (Reglan) 10 mg BEFORE MEALS PO Last administered on 12/08/18 17:27; Admin Dose 10 MG; Start 12/08/18 at 07:30 Ondansetron HCl (Zofran Inj) 4 mg Q4 PRN IV nausea Last administered on 12/08/18 11:01; Admin Dose 4 MG; Start 12/07/18 at 23:30 Potassium Chloride (Klor-Con 20) 40 meq TID PO Last administered on 12/08/18 12:11; Admin Dose 40 MEQ; Start 12/08/18 at 09:00; Stop 12/08/18 at 21:01 Miscellaneous Information 1 ea NOTE XX ; Start 12/07/18 at 23:30 Glucose (Glutose) 15 gm Q15M PRN PO DECREASED GLUCOSE; Start 12/07/18 at 23:30 Glucose (Glutose) 22.5 gm Q15M PRN PO DECREASED GLUCOSE; Start 12/07/18 at 23:30 Dextrose (D50w Syringe) 25 ml Q15M PRN IV DECREASED GLUCOSE; Start 12/07/18 at 23:30 Dextrose (D50w Syringe) 50 ml Q15M PRN IV DECREASED GLUCOSE; Start 12/07/18 at 23:30 Glucagon (Glucagen) 1 mg Q15M PRN IM DECREASED GLUCOSE; Start 12/07/18 at 23:30 Glucose (Glutose) 15 gm Q15M PRN BUCCAL DECREASED GLUCOSE; Start 12/07/18 at 23:30 Sodium Chloride 1,000 ml @ 100 mls/hr Q10H IV Last administered on 12/08/18 13:57; Admin Dose 100 MLS/HR; Start 12/08/18 at 13:30 Coded Allergies: No Known Allergy (Unverified , 12/07/18) Social History Smoking Status: Never smoker Exam/Review of Systems Vital Signs Vitals Vital Signs Date Temp Pulse Resp B/P (MAP) Pulse Ox O2 O2 Flow FiO2 Time Delivery Rate 12/08/18 98.1 111 18 115/71 97 14:21 (86) 12/07/18 Room Air 23:00 Intake and Output 12/07/18 12/07/18 12/08/18 1515:00 23:00 07:00 IntakeIntake Total 100 ml BalanceBalance 100 ml Exam Constitutional: alert, oriented, well developed Psych: confusion, other (Odd behavior , odd social dynamics ) Head: normocephalic, atraumatic Eyes: nl conjunctiva, EOMI, nl sclera, PERRL ENMT: nl external ears & nose, nl lips & teeth, other (dry mucosa ) Neck: supple, non-tender Respiratory: clear to auscultation, normal air movement Cardiovascular: regular rate and rhythm (tachycardic ), nl pulses; No edema Gastrointestinal: soft, nl liver, spleen, non-tender Musculoskeletal: nl extremities to inspection Extremities: normal pulses Neurological: STATISTICAL METHODS TEACHER II-XII intact, nl mental status, nl speech, nl strength ELAINE SAUCEDO MD Dec 08, 2018 19:48
[2018-12-08 20:10] VITALS: BP 120/75; PULSE 112; RESP 20
[2018-12-09 02:08] VITALS: BP 122/76; PULSE 105; RESP 16
[2018-12-09] MEDS: ERYTHROMYCIN BASE (DR) 250 MG CAP PO SCH ×2 (05:45→14:00)
[2018-12-09] MEDS: SOD CHLORIDE 0.9% 1,000 ML IV SCH ×2 (05:46→09:30)
[2018-12-09 07:47] VITALS: BP 126/79; PULSE 103; RESP 17
[2018-12-09] MEDS: METOCLOPRAMIDE 10 MG TAB PO SCH ×2 (08:48→11:30)
[2018-12-09] MEDS: INSULIN ASPART [NOVOLOG] 3 ML PEN SC SCH ×2 (08:52→12:57)
[2018-12-09] MEDS: ONDANSETRON 4 MG INJ IV PRN (08:57)
[2018-12-09] MEDS ORDERED: POTASSIUM CHLORIDE (SR) 20 MEQ TAB PO STA (11:37)
[2018-12-09] MEDS ORDERED: MAGNESIUM SULFATE 2 GM/50 ML 50 ML IVPB ONE (12:00)
--- NOTE | 2018-12-09 12:28 | PDOCDIS ---
Discharge Instructions CONDITION [id number] Patient Condition: [id number] Stable HOME CARE INSTRUCTIONS: [id number] Special Diet: [id number] DIABETIC DIET ACTIVITY: [id number] Activity Restrictions: [id number] No Restrictions [id number] Bathing Restrictions: [id number] Shower FOLLOW UP/APPOINTMENTS Follow-up Plan Primary care physician in 7 days ELAINE SAUCEDO MD Dec 09, 2018 12:28
--- NOTE | 2018-12-09 12:39 | DS ---
Date/Time of Note Date/Time of Note DATE: 12/09/18 TIME: 12:38 Discharge Summary Admission/Discharge Info Admit Date/Time Dec 07, 2018 at 21:23 Discharge Date/Time Patient Condition: Stable Hx of Present Illness 23 f with type 1 DM and frequent admissions to the hospitals in the area for DKA who presented with episode of LOC which happened shortly after her boyfriend administered 30 units of Humalog insulin . He states that the patient insisted that this is the right dose of insulin despite his resistance to administer. She is normally on 30 units of Lantus at bedtime and 4 units of Humalog insulin with meals . She was noted to be severely hypoglycemic in the ED . She denies suicidal thoughts . She has no answer for me when I asked why did you ask him to inject wrong dose of Humalog. She just says that she wants to go home . She denies any focal weakness or numbness . Denies fever or chills, change in urination habits , cough , headache , neck pain, neck stiffness . ED work up was significant for leukocytosis which improved with IV hydration . Hypokalemia and anemia also noted . CBC differential was significant for elevated immature granulocytes , myelocytes , metamyelocytes and giant platelets . Hospital Course 23 f with type 1 DM and frequent admissions to the hospitals in the area for DKA who presented with episode of LOC which happened shortly after her boyfriend administered 30 units of Humalog insulin . Boyfriend states that the patient insisted that this is the right dose of insulin despite his resistance to administer. She is normally on 30 units of Lantus at bedtime and 4 units of Humalog insulin with meals . She was noted to be severely hypoglycemic in the ED . She denies suicidal thoughts . She has no answer for me when I asked why did you ask him to inject wrong dose of Humalog. ED work up was significant for leukocytosis which improved with IV hydration . Hypokalemia and anemia also noted . CBC differential was significant for elevated immature granulocytes , myelocytes , metamyelocytes and giant platelets . #AMS in the setting of hypoglycemia induced seizure , hypoglycemia improved , monitored sugars for the next 24 hours and discharged home in stable conditions #Odd behavior and odd social dynamics leading to administration of wrong dose of insulin , REJI, DM educator , consulted #Dehydration , improved with IV NS 100 cc /h #Leukocytosis , no fever, no signs of infection , reactive , improved with hydration #DMI , Lantus Sliding scale , hypoglycemic protocol , DM education # elevated immature granulocytes , myelocytes , metamyelocytes and giant platelets , hematology as outpatient #Anemia , Iron deficiency , Iron supplantation PO Home Meds Active Scripts Potassium Chloride* (Klor-Con*) 8 Meq Tablet.sa, 8 MEQ PO DAILY for 10 Days, #10 TAB Prov:ELAINE SAUCEDO MD 12/09/18 Magnesium Oxide* (Mag-Oxide*) 400 Mg Tablet, 400 MG PO BID, #30 TAB Prov:ELAINE SAUCEDO MD 12/09/18 Ferrous Sulfate* (Ferrous Sulfate*) 325 Mg Tabec, 325 MG PO TID for 30 Days, #90 TAB Prov:ELAINE SAUCEDO MD 12/09/18 Insulin Lispro (Humalog Kwikpen) 200 Unit/1 Ml Insuln.pen, 5 UNIT SQ TIDM A, #10 ML ADMELOG Prov:ELAINE SAUCEDO MD 12/09/18 Insulin Glargine,Hum.rec.anlog (Basaglar Kwikpen U-100) 100 Unit/1 Ml Insuln.pen, 20 UNIT SC QHS, #10 ML Prov:ELAINE SAUCEDO MD 12/09/18 Follow-up Plan Primary care physician in 7 days Primary Care Provider Care Physician No Primary Pending Labs Laboratory Tests Test 12/08/18 17:25 12/08/18 21:01 12/09/18 03:11 12/09/18 04:52 Bedside 230 282 197 Glucose mg/dL (70-220) mg/dL (70-220) mg/dL (70-220) Iron Level 25 ug/dl (35-150) Total Iron 192 Binding ug/dl (241-421 Capacity ) Percent Iron 13 % Saturation SAT (22-52) Test 12/09/18 04:53 12/09/18 08:48 White Blood 10.5 Count 10^3/ul (4.8-10 .8) Red Blood 3.26 Count 10^6/ul (4.20-5 .40) Hemoglobin 8.9 g/dl (12.0-16.0 ) Hematocrit 28.7 % (37.0-47.0) Mean 88.0 Corpuscular fl (82.0-101.0) Volume Mean 27.3 Corpuscular pg (29.0-33.0) Hemoglobin Mean 31.0 Corpuscular g/dl (32.0-37.0 Hemoglobin Conc ) ent Red Cell 13.2 Distribution % (11.5-14.5) Width Platelet Count 306 10^3/UL (140-41 5) Mean Platelet 10.5 Volume fl (7.4-10.4) Immature 5.200 Granulocytes % % (0.001-0.429) Neutrophils % 52.9 % (39.0-77.0) Lymphocytes % 33.0 % (15.0-51.0) Monocytes % 8.1 % (0.0-11.0) Eosinophils % 0.4 % (0.0-7.0) Basophils % 0.4 % (0.0-2.0) Nucleated Red 0.0 Blood Cells % /100WBC (0.0-0. 0) Immature 0.540 Granulocytes # 10^3/ul (0.0-0. 031) Neutrophils # 5.5 10^3/ul (1.6-7. 5) Lymphocytes # 3.5 10^3/ul (0.8-2. 9) Monocytes # 0.9 10^3/ul (0.3-0. 9) Eosinophils # 0.0 10^3/ul (0.0-0. 5) Basophils # 0.0 10^3/ul (0.0-0. 1) Nucleated Red 0.0 Blood Cells # 10^3/ul (0.0-0. 0) Absolute 0.021 Reticulocyte X10^6 (0.020-0. Count 110) Percent 0.7 % (0.5-1.5) Reticulocyte Count Sodium Level 136 mmol/L (135-144 ) Potassium 3.4 Level mmol/L (3.5-5.1 ) Chloride Level 101 mmol/L (97-110) Carbon Dioxide 34 Level mmol/L (21-31) Anion Gap 1 (5-13) Blood Urea 9 mg/dl (7-20) Nitrogen Creatinine 0.78 mg/dl (0.44-1.0 0) Est Glomerular > 60 Filtrat mL/min (>60) Rate mL/min Glucose Level 178 mg/dl (70-220) Calcium Level 7.9 mg/dl (8.4-10.2 ) Phosphorus 3.6 Level mg/dl (2.5-4.9) Magnesium 1.5 Level mg/dl (1.7-2.5) Total 0.2 Bilirubin mg/dl (0.2-1.3) Direct 0.00 Bilirubin mg/dl (0.00-0.2 0) Indirect 0.2 Bilirubin mg/dl (0-1.1) Aspartate Amino 34 IU/L (15-46) Transf (AST/SGO T) Alanine 49 IU/L (13-69) Aminotransferas e (ALT/SGPT) Alkaline 123 Phosphatase IU/L (42-121) Lactate 697 Dehydrogenase IU/L (313-618) Total Protein 5.5 g/dl (6.1-8.1) Albumin 2.4 g/dl (3.3-4.9) Globulin 3.10 g/dl (1.3-3.2) Albumin/Globuli 0.77 n Ratio Vitamin B12 692 Level pg/ml (239-931) Folate 12.2 ng/ml (2.8-20.0 ) Bedside 167 Glucose mg/dL (70-220) ELAINE SAUCEDO MD Dec 09, 2018 12:38
[2018-12-09] MEDS ORDERED: FERROUS SULFATE (EC) 325 MG TAB PO SCH (13:00)
[2018-12-09 14:13] VITALS: BP 121/58; PULSE 103; RESP 20
== END 2018-12-09 15:30 | disposition home health service (06) ==
LOC: E/R 16:41 → MS1 21:23 → EDBEDREQSVC 22:42
PROVIDERS: ADMIT Internal Medicine; ATTEND Internal Medicine
DX: E10.649 Type 1 diabetes mellitus with hypoglycemia without coma (principal); R46.89 Other symptoms and signs involving appearance and behavior; E86.0 Dehydration; D72.829 Elevated white blood cell count, unspecified; E10.43 Type 1 diabetes mellitus with diabetic autonomic (poly)neuropathy; K31.84 Gastroparesis; E87.6 Hypokalemia; D64.9 Anemia, unspecified; Z79.4 Long term (current) use of insulin
CPT/HCPCS: 36415; 71045; 80048; 80053; 82150; 82550; 82553; 82607; 82746; 82962; 83540; 83615; 83690; 83735; 84100; 84484; 84703; 85025; 85045; 85610; 85730; 93005; 96374; 96375; J1815; J2405; J3475; J3480; J7030; Z7500; Z7502; Z7610; G0378